=== PATIENT | female | born 1960 | race Caucasian/White ===

== ENCOUNTER 2023-01-19 09:47 | Emergency (ER) | payer MEDICAID ==
[~2023-01-19] VITALS: Ht 165.1 cm; Wt 63.0 kg
[~2023-01-19 09:47] MED LIST: ALPR1TAB2 PO; ASPI81CH43 PO; BACL-63 PO; CARB100C20; CLON1TAB PO; CLOP75TA70 PO; GABA-1254 PO; GLAT20KI SC; INSLISPI SC; INSUINJ37 SC; LABE200T7 PO; LURA40TA2 PO; NOR10T PO; SITA100T7
[2023-01-19 10:15] VITALS: PULSE 78; RESP 12; TEMP 98.3; O2SAT 98
[2023-01-19] MEDS ORDERED: LIDOCAINE 2%HCL (LOCAL ANESTH.) INJ 20ML MDV ID ONE (10:45)
[2023-01-19] MEDS ORDERED: LABETALOL HCL 5 MG/ML 4ML SYRINGE IV ONE (10:45)
[2023-01-19] MEDS ORDERED: BACITRACIN TOP OINT 1 UD PKG TOP ONE (10:45)
[2023-01-19 11:12] LABS: Basophils # (auto) 0.1 10 ^3/uL (0-0.2); Eosinophils # (auto) 0 10 ^3/uL (0-0.8); Monocytes # (auto) 0.2 10 ^3/uL (0-1.3); White Blood Cell 4.3 10^3/uL (4.4-10.8)
[2023-01-19 11:18] LABS: Basophils % (auto) 1.2 % (0.0-2.0); Eosinophils % (auto) 0.5 % (0.0-7.0); Hematocrit 36.2 % (36.0-46.0); Hemoglobin 11.1 g/dL (12.2-16.2); Lymphocytes % (auto) 23.2 % (10.0-50.0); Mean Corpuscular Hemoglobin 20.3 pg (28.0-32.0); Mean Corpuscular Hgb Conc. 30.5 g/dL (32.0-36.0); Mean Corpuscular Volume 66.6 fL (80.0-100.0); Monocytes % (auto) 4.1 % (0.0-12.0); Neutrophils # (auto) 3.1 10 ^3/uL (1.6-8.6); Red Blood Cells 5.44 10^6/uL (4.0-5.20); Red Cell Distribution Width 20.8 % (11.8-14.3)
[2023-01-19 11:25] LABS: INR 1.05 (0.9-1.15); Partial Thromboplastin Time 26.2 SEC (24.5-34.5)
[2023-01-19 11:27] LABS: Platelet Estimate Adequate
[2023-01-19 11:28] LABS: Anisocytosis Slight; Hypochromia Marked; Ovalocytes MODERATE
[2023-01-19 11:29] LABS: Stomatocytes Moderate
[2023-01-19 11:31] LABS: Alanine Aminotransferase 13 U/L (7-40); Albumin 4.7 g/dL (3.2-4.8); Alkaline Phosphatase 84 U/L (46-116); Anion Gap 4.4 (5-15); Aspartate Aminotransferase 12 U/L (13-40); BUN/Creatinine Ratio 11.6 (10.0-20.0); Blood Urea Nitrogen 10 mg/dL (9-23); Calcium 8.9 mg/dL (8.7-10.4); Carbon Dioxide 27.6 mmol/L (20-30); Chloride 105 mmol/L (98-107); Glucose 139 mg/dL (74-106); Magnesium 1.8 mg/dL (1.6-2.6); Potassium 4.3 mmol/L (3.5-5.1); Sodium 137 mmol/L (136-145)
[2023-01-19 11:32] LABS: Bilirubin, Total 0.4 mg/dL (0.2-1.0); Total Protein 7.2 g/dL (5.7-8.2)
[2023-01-19] MEDS ORDERED: IOHEXOL 350 MG/ML 100ML IJ ONE (11:44)
[2023-01-19 14:00] VITALS: BP 145/70; PULSE 63; RESP 12; O2SAT 100
[2023-01-19] MEDS ORDERED: cefTRIAXone 1GM/50ML D5W 50 ML IV ONE (14:00)
[2023-01-19] MEDS ORDERED: hydrALAZINE HCL 20 MG/ML VL IV PRN (14:30)
[2023-01-19] MEDS ORDERED: ACETAMINOPHEN 325 MG TAB PO PRN (14:30)
[2023-01-19] MEDS ORDERED: NITROGLYCERIN 0.4 MG SL TAB SL PRN (14:30)
[2023-01-19] MEDS ORDERED: SODIUM CHLORIDE 0.9% 1,000 ML IV SCH (14:30)
[2023-01-19] MEDS ORDERED: MORPHINE SULFATE INJ 2 MG/ml SYRG IV PRN (14:30)
[2023-01-19] MEDS ORDERED: HYDROcodone-ACET 5/325MG TAB PO PRN (14:30)
[2023-01-20] MEDS ORDERED: cefTRIAXone 1GM/50ML D5W 50 ML IV SCH (09:00)
== END 2023-01-19 14:31 | disposition left against medical advice (07) ==
LOC: ER 09:47 → EDBD 09:47 → ER 14:31
DX: S01.112A Laceration without foreign body of left eyelid and periocular area, initial encounter (principal); R55 Syncope and collapse; I63.9 Cerebral infarction, unspecified; I25.2 Old myocardial infarction; E11.9 Type 2 diabetes mellitus without complications; M54.12 Radiculopathy, cervical region; K80.10 Calculus of gallbladder with chronic cholecystitis without obstruction; I10 Essential (primary) hypertension; R79.89 Other specified abnormal findings of blood chemistry; W10.8XXA Fall (on) (from) other stairs and steps, initial encounter; Y93.89 Activity, other specified; Y92.89 Other specified places as the place of occurrence of the external cause; Y99.8 Other external cause status
CPT/HCPCS: 12013; 36415; 70450; 71045; 71275; 72125; 80053; 83735; 84443; 84484; 85025; 85379; 85610; 85730; 93005; 99285; J3490; Q9967

== ENCOUNTER 2024-11-16 06:37 | Day surgery (SDC) | payer MEDICAID ==
[2024-11-16] VITALS (9 sets, daily range): BP systolic 105–159; BP diastolic 53–108; PULSE 60–74; RESP 10–24; O2SAT 98–100
[~2024-11-16] VITALS: Ht 165.1 cm; Wt 54.4 kg
[~2024-11-16 06:37] MED LIST changes: -ALPR1TAB2 PO; +ATOR40TA52 PO; -BACL-63 PO; -CARB100C20; -CLON1TAB PO; -GABA-1254 PO; -GLAT20KI SC; -INSLISPI SC; +INSU100I61 SC; -INSUINJ37 SC; -LABE200T7 PO; +LISI40TA16 PO; -LURA40TA2 PO; +METF-370 PO; -NOR10T PO; -SITA100T7
[2024-11-16] MEDS: IODIXANOL 320MG/ML 100ML BTL IV ONE ×2 (07:17→07:55)
[2024-11-16] MEDS: ANGIOMAX 250 MG VIAL IV ONE (07:33)
[2024-11-16] MEDS: VERAPAMIL 2.5MG/ML INJ 2ML VIAL IV ONE (07:33)
[2024-11-16] MEDS: fentaNYL CITRATE 100 MCG/2 ML VL ONE (07:33)
[2024-11-16] MEDS: SODIUM CHL 0.9% 0 ML ONE (07:34)
[2024-11-16] MEDS: MIDAZOLAM HCL 2MG/2ML 2ml VIAL (1mg/ml) ONE (07:34)
[2024-11-16] MEDS: LIDOCAINE 2%HCL (LOCAL ANESTH.) INJ 20ML MDV ONE (07:34)
[2024-11-16] MEDS: HEPARIN SODIUM (PORCINE) 5000 UNITS/ML 1ML VIAL ONE (07:54)
--- NOTE | 2024-11-16 08:47 | DVHOP2 ---
Operative Report Operative Report [facility] PROCEDURE REPORT [place], [place] Date of Service: Plater Apprentice: Mary Beth Mann MD PROCEDURES PERFORMED: Coronary angiogram, left heart catheterization, conscious sedation administration and supervision, less than 15 minutes; fluoroscopy use and interpretation. US guided vascular access saved to pacs PREOPERATIVE DIAGNOSES: calcium score of 4K, severe cad rule out POSTOP DIAGNOSIS: mild CAD DESCRIPTION OF PROCEDURE: The patient or appropriate family signed informed consent understanding the risks, benefits and alternatives of the procedure, they wished to proceed. The patient was brought to the cardiac medical laboratory specialist [place] The patient was prepped in a sterile fashion. Sedation was used per cardiac cath protocol. I administered 2 mL of 2% lidocaine to the right wrist. I used US to visualize a heavily calcified radial artery that was patent. With an antegrade front wall puncture. I cannulated the right radial artery and placed a 6-[place] slender. Next, an intra-arterial spasmolytic was administered. Next, a - 5 [place] catheter were used for coronary angiogram and LVEDP measurement and pressure pullback. At the completion of procedure, all guides and wires were removed, and there were no immediate complications. FINDINGS: RCA: Moderate vessel off the right sinus of Valsalva, there is no severe flow limiting stenosis. dominant vessel LEFT MAIN: Moderate size left main, it bifurcates into LAD and circumflex. no severe stenosis CIRCUMFLEX: Moderate caliber vessel coming off the left main with no flow limiting stenosis. 30% mid CX stenosis LAD: LAD is a moderate caliber vessel coming of the left main. mid LAD has 40% stenosis. D1 has 40% stenosis heavily calcified mitral valve noted LVEDP of 12 mmhg CONCLUSIONS: 1. mild CAD PLAN: Aggressive risk factor modification and medical management for the patient. MARY BETH MANN MD Nov 16, 2024 08:47
--- NOTE | 2024-11-17 07:40 | ECG ---
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
--- NOTE | 2024-11-19 07:58 | ECG ---
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
== END 2024-11-16 11:07 | disposition home or self-care (01) ==
LOC: CATH 06:37
PROVIDERS: ATTEND Internal Medicine
DX: I25.10 Atherosclerotic heart disease of native coronary artery without angina pectoris (principal); Z79.899 Other long term (current) drug therapy; Z98.890 Other specified postprocedural states
CPT/HCPCS: 93005; 93458; C1769; C1894; J1644; J2250; J3010; J7030; Q9967; 99152